=== PATIENT | female | born 2000 | race Caucasian/White ===

== ENCOUNTER → 2021-12-26 12:53 | Outpatient (CLI) | payer OTHER, SELFPAY ==
--- NOTE | ~2021-12-26 | US_ITS ---
EXAMINATION: US pelvic complete DATE: 12/26/2021 13:25 INDICATION: Missing IUD strings Comparison:No prior studies for comparison. TECHNIQUE: Multiple transabdominal sonographic images of the pelvis performed. FINDINGS: The uterus measures 8 x 4 x 5 cm. There is an IUD in the endometrium. The endometrial compl ex measures 5 mm. The right ovary measures 2 x 1.7 x 2.6 cm and the left ovary measures 2.3 x 1.9 x 1.9 cm. There are small follicles in each ovary. Normal doppler signal in both ovaries. There is no free fluid in the pelvis. There are no abnormal masses seen on either side. IMPRESSION: 1. Unremarkable pelvic ultrasound. IUD in expected position in the endometrium. Reviewed, dictated and finalized at location B.
== END ==
PROVIDERS: PCP Advanced Practice Midwife; Visit Provider Advanced Practice Midwife
DX: T83.32XA Displacement of intrauterine contraceptive device, initial encounter (principal)
CPT/HCPCS: 76856